=== PATIENT | male | born 1950 | race Caucasian/White ===

== ENCOUNTER → 2020-03-03 09:00 | Outpatient (BNVA) | payer BC, SELFPAY | PROVIDERS: Family Provider Family Medicine; PCP Family Medicine; Visit Provider Family Medicine | DX: R74.0 Nonspecific elevation of levels of transaminase and lactic acid dehydrogenase [LDH] (principal) | CPT/HCPCS: 80053; 80061; 84153; 84439; 84443; 85025 ==

== ENCOUNTER → 2020-09-12 09:30 | Outpatient (BNVA) | payer BC, SELFPAY | PROVIDERS: Family Provider Family Medicine; PCP Family Medicine; Visit Provider Family Medicine | DX: R05 Cough (principal) | CPT/HCPCS: 71046 ==

== ENCOUNTER 2020-09-16 10:14 | Outpatient (CLI) | payer MEDICARE, SELFPAY ==
--- NOTE | 2020-09-16 11:30 | CT_ITS ---
WS: [id number] CT CHEST AND ABDOMEN WITHOUT CONTRAST HISTORY: J40 - Bronchitis, not specified as acute or chronic TECHNIQUE: Axial imaging is performed through the chest and abdomen without contrast. Sagittal and co jerri reformats. All CT scans at [facility] use at least one of these dose optimization t echniques: automated exposure control; mA and/or kV adjustment per patient size (includes targeted ex ams where dose is matched to clinical indication); or iterative reconstruction. CONTRAST: None DLP: 1386.67 mGy-cm. COMPARISON: None available. Chest CT: Marked pulmonary hyperinflation. Triangular shaped 8mm nodule LEFT lower lung present in 2006. No pul monary mass or pneumonia. No bronchial wall thickening. No pleural effusion. No pericardial effusion. Normal size thoracic aorta and pulmonary artery. Normal size heart. Scattered calcifications in the L EFT anterior descending coronary artery. No mediastinal or hilar adenopathy identified on this unenhanced study. Large lobulated hiatal hernia. Abdomen CT: Liver: Hepatic cyst in the LEFT lobe measures 3.8 x 4.1 cm and has been present on prior studies. The re is moderate hepatic steatosis throughout the liver. No bile duct dilatation. Gallbladder: Normal. Pancreas: Normal. Spleen: Normal. Right kidney: Mild perinephric stranding. No obstruction or calcifications. Left kidney: Mild perinephric stranding. LEFT renal cyst at 2.8 cm has slowly increased in size since 2007. No solid mass. Abdominal aorta: Mild atherosclerosis aorta. No aneurysm. Gastrointestinal tract: Visualized GI tract is negative. There is no obstruction. Osseous structures: Thoracolumbar scoliosis. Moderate spondylitic changes in the thoracic spine. Prio r bilateral rotator cuff repairs. CT/CT chest abdomen wo con IMPRESSION: 1. Chronic emphysema with no pneumonia. 2. Long-term stability 8 mm LEFT lower lobe pulmonary nodule. 3. Large hiatal hernia. 4. Hepatic and LEFT renal cysts.
== END 2020-09-16 10:15 | disposition home or self-care (01) ==
LOC: RAD 10:20
PROVIDERS: PCP Family Medicine; Visit Provider Family Medicine
DX: J40 Bronchitis, not specified as acute or chronic (principal); J43.9 Emphysema, unspecified; R91.1 Solitary pulmonary nodule; K44.9 Diaphragmatic hernia without obstruction or gangrene; K76.89 Other specified diseases of liver; N28.1 Cyst of kidney, acquired
CPT/HCPCS: 71250; 74150; 80053; 85025; 87070; G0103

== ENCOUNTER → 2020-11-02 10:55 | Outpatient (BNVA) | payer MEDICARE, SELFPAY | PROVIDERS: PCP Family Medicine; Visit Provider Family Medicine | DX: R05 Cough (principal) | CPT/HCPCS: 87070; 87077; 87205 ==

== ENCOUNTER → 2021-03-27 14:37 | Outpatient (BNVA) | payer MEDICARE, SELFPAY | PROVIDERS: PCP Family Medicine; Visit Provider Family Medicine | DX: C44.41 Basal cell carcinoma of skin of scalp and neck (principal) | CPT/HCPCS: 88304 ==

== ENCOUNTER 2021-10-30 00:15 | Emergency (ER) | payer MEDICARE, SELFPAY ==
[2021-10-30 00:17] VITALS: PULSE 75; RESP 18; TEMP 36.7; O2SAT 97; BMI 27.3
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
[2021-10-30 00:20] VITALS: RESP 21; O2SAT 99
[2021-10-30] MEDS: HYDROmorphone 1 mg/mL INJ 1 mL IVP ×2 (00:20→03:05)
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
[2021-10-30 00:36] VITALS: BP 189/100; RESP 21; O2SAT 98
[2021-10-30] MEDS: ceFAZolin 1,000 MG in sodium chloride 0.9% (plus) 50 ML 100 MG IV (00:41)
[2021-10-30] MEDS: sodium chloride 0.9% 1,000 ML 999 ML IV (01:01)
[2021-10-30] MEDS: ondansetron 2 mg/ML SDV 2 mL 4 MG IVP ×2 (01:01→03:05)
[2021-10-30] MEDS: tetanus-dipt-pertussis 0.5 mL SDV IM (01:12)
[2021-10-30] MEDS: eye irrigation 30 mL Btl EYE-BOTH (03:03)
[2021-10-30] MEDS: tetracaine 0.5% Op Soln 4 mL Btl 1 DROP EYE-BOTH (03:04)
[2021-10-30] MEDS: mupirocin oint 22 gm 1 APPLIC TOPICAL (03:04)
[2021-10-30 03:05] VITALS: RESP 18
[2021-10-30 03:09] VITALS: BP 149/92; PULSE 75; O2SAT 98
== END 2021-10-30 03:14 | disposition short-term general hospital (02) ==
PROVIDERS: Emergency Provider Emergency Medicine; PCP Family Medicine
DX: T20.29XA Burn of second degree of multiple sites of head, face, and neck, initial encounter (principal); T23.291A Burn of second degree of multiple sites of right wrist and hand, initial encounter; T23.292A Burn of second degree of multiple sites of left wrist and hand, initial encounter; T21.14XA Burn of first degree of lower back, initial encounter; T25.021A Burn of unspecified degree of right foot, initial encounter; T25.022A Burn of unspecified degree of left foot, initial encounter; X00.0XXA Exposure to flames in uncontrolled fire in building or structure, initial encounter; Z87.891 Personal history of nicotine dependence; Z23 Encounter for immunization
CPT/HCPCS: 71045; 90471; 90715; 96365; 96375; 96376; 99285; J0690; J1170; J2405; J7030

== ENCOUNTER → 2022-04-03 16:50 | Outpatient (BNVA) | payer MEDICARE, SELFPAY | PROVIDERS: PCP Family Medicine; Visit Provider Nurse Practitioner Family | DX: D64.9 Anemia, unspecified (principal); E78.5 Hyperlipidemia, unspecified | CPT/HCPCS: 80053; 80061; 84439; 84443; 85025 ==

== ENCOUNTER → 2023-02-20 09:52 | Outpatient (BNVA) | payer MEDICARE, SELFPAY | PROVIDERS: PCP Family Medicine; Visit Provider Family Medicine | DX: K21.00 Gastro-esophageal reflux disease with esophagitis, without bleeding (principal); J42 Unspecified chronic bronchitis; Z79.899 Other long term (current) drug therapy | CPT/HCPCS: 71046; 80053; 80061; 85025; G0328 ==

== ENCOUNTER → 2023-04-24 08:57 | Outpatient (BNVA) | payer MEDICARE, SELFPAY | PROVIDERS: PCP Family Medicine; Visit Provider Family Medicine | DX: Z13.9 Encounter for screening, unspecified (principal) | CPT/HCPCS: 86695; 86696; 87491; 87591; 87806 ==

== ENCOUNTER → 2023-05-20 10:03 | Outpatient (BNVA) | payer MEDICARE, SELFPAY | PROVIDERS: PCP Family Medicine; Referring Provider Family Medicine; Visit Provider Specialist | DX: M25.539 Pain in unspecified wrist (principal); G89.29 Other chronic pain | CPT/HCPCS: 73110; 99204 ==

== ENCOUNTER → 2023-10-07 10:54 | Outpatient (BNVA) | payer MEDICARE, SELFPAY | PROVIDERS: PCP Family Medicine; Visit Provider Family Medicine | DX: Z53.9 Procedure and treatment not carried out, unspecified reason (principal) | CPT/HCPCS: 93005 ==

== ENCOUNTER → 2023-11-14 12:29 | Outpatient (BNVA) | payer MEDICARE, SELFPAY | PROVIDERS: PCP Family Medicine; Visit Provider Specialist | DX: G56.03 Carpal tunnel syndrome, bilateral upper limbs (principal); G56.91 Unspecified mononeuropathy of right upper limb; G56.92 Unspecified mononeuropathy of left upper limb; M19.042 Primary osteoarthritis, left hand; M19.041 Primary osteoarthritis, right hand | CPT/HCPCS: 95911 ==

== ENCOUNTER → 2024-03-18 12:37 | Outpatient (BNVA) | payer MEDICARE, SELFPAY | PROVIDERS: PCP Family Medicine; Visit Provider Specialist | DX: G56.03 Carpal tunnel syndrome, bilateral upper limbs (principal) | CPT/HCPCS: 73110 ==

== ENCOUNTER → 2024-03-19 12:31 | Outpatient (BNVA) | payer MEDICARE, SELFPAY | PROVIDERS: PCP Family Medicine; Visit Provider Internal Medicine | DX: R07.9 Chest pain, unspecified (principal); I48.91 Unspecified atrial fibrillation; I45.2 Bifascicular block; I10 Essential (primary) hypertension | CPT/HCPCS: 93005; 99204 ==

== ENCOUNTER 2024-04-15 14:53 | Outpatient (CLI) | payer MEDICARE, SELFPAY ==
--- NOTE | 2024-04-15 15:00 | USCV_ITS ---
Jarvis Rivera Age: 73 Gender: M : 1950 Exam Date: 04/15/2024 15:13 Ordering Phys: Clint Alanis M.D ([email or web address]) Technologist: CT Exam Location: [facility] [place] Indication: afib BP: 124 / 84 HR: 95 Rhythm: Atrial fibrillation Technical Quality: Adequate MEASUREMENTS (Male / Female) Normal Values 2D ECHO LVOT Diameter 2.0 cm LV Ejection Fraction MOD 4C 55.8 % LV Ejection Fraction MOD 2C 50.0 % LV Ejection Fraction 2C AL 48.2 % LA Diameter 5.0 cm RA Systolic Volume 4C AL 88.4 ml RA Systolic Volume 4C MOD 85.1 ml LA Sys Volume AL 91.7 cm cubed LA Sys Volume Index AL 45.0 cm cubed/m squared Aorta at Sinotubular Diameter 2.5 cm IVC Diameter 2.2 cm M-MODE LA Ao Ratio MM 2.1 AV Cusp Separation MM 1.4 cm DOPPLER AV Peak Velocity 178.0 cm/s LVOT Peak Velocity 86.0 cm/s AV Area Cont Eq vti 1.9 cm squared AV Area Cont Eq pk 1.6 cm squared MV Peak Velocity 95.0 cm/s MV Area PHT 3.9 cm squared Mitral E to A Ratio 226.0 TV Peak Velocity 201.0 cm/s TR Peak Velocity 229.0 cm/s TR Peak Gradient 21.0 mmHg TV Peak E Velocity 82.0 cm/s Right Atrial Pressure 3.0 mmHg Pulmonary Artery Systolic Pressu 24.0 mmHg PV Peak Velocity 113.5 cm/s FINDINGS Left Ventricle Left ventricle is normal in size. LV systolic function is borderline normal with EF of 50 to 55%. No regional wall motion abnormalities seen. Right Ventricle Normal in size and function Right Atrium Dilated Left Atrium Dilated Mitral Valve Structurally normal mitral valve. Mild mitral regurgitation. Aortic Valve Structurally normal aortic valve. No significant stenosis or regurgitation. Tricuspid Valve Mild tricuspid regurgitation. Pulmonary artery systolic pressure is normal. Pulmonic Valve Not well visualized Pericardium Normal Aorta Normal in size IVC Appears to be normal CONCLUSIONS LV systolic function is borderline normal with EF of 50-55% Biatrial dilation Mild mitral regurgitation Mild tricuspid regurgitation No comparison studies are available. Clint Alanis MD (Electronically Signed) Final Date: 18 April 2024 13:54 S
== END 2024-04-15 14:54 | disposition home or self-care (01) ==
LOC: RAD 14:54
PROVIDERS: PCP Family Medicine; Visit Provider Internal Medicine
DX: I08.1 Rheumatic disorders of both mitral and tricuspid valves (principal); R07.9 Chest pain, unspecified; R06.02 Shortness of breath
CPT/HCPCS: 93306

== ENCOUNTER → 2024-04-16 11:00 | Outpatient (BNVA) | payer MEDICARE, SELFPAY | PROVIDERS: PCP Family Medicine; Visit Provider Family Medicine | DX: J43.9 Emphysema, unspecified (principal) | CPT/HCPCS: 87070; 87205 ==

== ENCOUNTER → 2024-04-30 12:07 | Outpatient (BNVA) | payer MEDICARE, SELFPAY | PROVIDERS: PCP Family Medicine; Visit Provider Internal Medicine | DX: I48.91 Unspecified atrial fibrillation (principal); I10 Essential (primary) hypertension; Z87.891 Personal history of nicotine dependence | CPT/HCPCS: 99215 ==

== ENCOUNTER 2024-04-30 16:32 | Inpatient (IN) | payer MEDICARE, SELFPAY ==
[2024-04-30] VITALS (15 sets, daily range): BP systolic 126–177; BP diastolic 79–128; PULSE 81–135; RESP 6–32; TEMP 36.6–36.8; O2SAT 87–96; BMI 29.7
--- NOTE | 2024-04-30 17:42 | P.HP_ITS ---
Providers/Chief Complaint 2 Admitting Physician: Clint Alanis M.D Primary Care Provider: Binh Issa DO Chief Complaint: Afib History of Present Illness Jarvis Rivera is a 73 year old male with past medical history of atrial fibrillation hypertension who was admitted directly from the office secondary to A-fib with RVR. Heart rate in 120s. He is short of breath. He had recent nuclear monitoring technician that showed average heart rate of 114 bpm and 100% atrial fibrillation burden. Review of Systems 2 General: Reports: 10 or more systems reviewed and unremarkable except in HPI and below Const: Denies: fever(s) or chills Card: Reports: dyspnea on exertion; Denies: chest pain, palpitations, irregular heart rhythm, swelling of feet/ankles, lightheadedness, pre-syncope, orthopnea or leg pain with exertion Resp: Denies: dyspnea, productive cough or non-productive cough Musc: Reports: neck pain and back pain Neuro: Denies: headache(s) or dizziness Psych: Denies: anxiety, depression, suicidal ideation or homicidal ideation Mracos/Lymph: Denies: easy bruising or easy bleeding Medications/Allergies Home Medications Medication Instructions Recorded Confirmed Last Taken Type ibuprofen 200 mg capsule 400 mg PO BID PRN pain 03/27/21 04/30/24 04/30/24 07:30 History 400 mg ascorbate calcium (vitamin C) 500 1 g PO DAILY 02/20/23 04/30/24 04/30/24 07:30 History mg tablet vitamin E mixed 400 unit capsule unit PO 02/20/23 04/30/24 04/30/24 07:30 History multivitamin (Daily Multi-Vitamin 1 tab PO DAILY 05/20/23 04/30/24 04/30/24 07:30 History tablet) apixaban 5 mg tablet (Eliquis) 5 mg PO BID #180 tabs 03/19/24 04/30/24 04/30/24 07:30 Rx metoprolol tartrate 25 mg tablet 50 mg PO BID 04/30/24 04/30/24 Unknown History metoprolol tartrate 25 mg tablet 50 mg PO BID 04/30/24 04/30/24 04/30/24 07:30 History 50 mg Allergies Allergy/AdvReac Type Severity Reaction Status Date / Time Sulfa (Sulfonamide Allergy Severe mouth sores Verified 04/30/24 17:19 Antibiotics) Penicillins Allergy Intermediate ALGY-Hives Verified 04/30/24 17:18 tetracycline Allergy Intermediate ADR-Diarrhe Verified 04/30/24 17:18 a PFSH Acute 2 PFSH: Family History (Updated 04/30/24 @ 17:30 by Bhargavi Reynolds RN) Father Diabetes Hypertension Sister Lung disease Cancer Mother Dementia Social History Smoking and tobacco/nicotine status: former use of tobacco/nicotine Alcohol intake: current Alcohol intake frequency: 0-2 Drinks per Day Vitals/I&O/Wt Weight last 48 hrs Weight 190 lb 0.5 oz Physical Exam 2 Narrative: GENERAL: Patient is alert, awake and oriented x3. [] NECK: No jugular vein distension. [] HEENT: No cyanosis. No icterus. No pallor. [] HEART: Irregularly irregular, tachycardic. LUNGS: Clear to auscultate bilaterally. [] CENTRAL NERVOUS SYSTEM: Grossly nonfocal. [] EXTREMITIES: Lower extremities with 1+ edema bilaterally. Data 04/30/24 18:19 05/01/24 02:20 A&P Assessment and plan (1) Atrial fibrillation with RVR: (2) Hypertension: Plan Patient has been admitted with atrial fibrillation with RVR. He is symptomatic. Plan for DYAN cardioversion tomorrow. Will continue Eliquis. Continue metoprolol. Starting amiodarone drip. Low dose lasix NPO past midnight for DYAN/ Cardioversion tomorrow. Attestations 2 Medical Necessity Statement*: Care not expected to cross 2 midnights. Patient has presented with atrial fibrillation with RVR. He is short of breath. Plan for starting on antiarrhythmic medication and perform DYAN/ Cardioversion tomorrow. If converts to sinus rhythm, possible discharge home later tomorrow. Coding Level of Care Code Acute Code for [facility] Fwd Diagnoses Atrial fibrillation with RVR I48.91 Hypertension I10
--- NOTE | 2024-04-30 17:42 | XRR_ITS ---
PROCEDURE INFORMATION: Exam: XR Chest Exam date and time: 04/30/2024 9:28 PM Age: 73 years old Clinical indication: Cough and shortness of breath; Additional info: Atrial fibrillation TECHNIQUE: Imaging protocol: Radiologic exam of the chest. Views: 1 view. COMPARISON: CR XR chest 2V* [id number] 02/20/2023 10:07 AM FINDINGS: Lungs: Unremarkable. No consolidation. Pleural spaces: Unremarkable. No pleural effusion. No pneumothorax. Heart/Mediastinum: Mild cardiomegaly. Bones/joints: Unremarkable. XR/XR chest 1V portable [id number] IMPRESSION: No acute cardiopulmonary process.
[2024-04-30] MEDS: amiodarone 150 MG/100 ML PREMIX 400 MG IV (18:29)
[2024-04-30 18:41] LABS: Basophils # 0.1 10^3/uL (0.0-0.1); Basophils % 1.3 %; Eosinophils # 0.1 10^3/uL (0.0-0.8); Eosinophils % 2.4 %; Hematocrit 45.7 % (37-53); Lymphocytes # 1.6 10^3/uL (0.8-4.8); Mean Corpuscular HGB Conc 33.5 g/dL (30-55); Mean Corpuscular Hemoglobin 30.1 pg (27-33); Mean Corpuscular Volume 89.8 fl (82-101); Monocytes # 0.7 10^3/uL (0.2-0.9); Monocytes % 12.7 %; Neutrophils % 54.2 %; Nucleated Red Blood Cells % 0 %; Platelet Count 214 10^3/cmm (157-399); Red Blood Count 5.09 10^6/uL (3.85-5.65); Red Cell Distribution Width 12.7 % (12.1-15.1); White Blood Count 5.35 10^3/uL (3.29-11.43)
[2024-04-30 19:07] LABS: Alanine Aminotransferase 79 U/L (0-41); Albumin Level 4.5 g/dL (3.5-5.2); Alkaline Phosphatase 84 U/L (40-130); Anion Gap 16.4 (5-19); Aspartate Amino Transferase 52 U/L (0-40); Blood Urea Nitrogen 22 mg/dL (8-23); Calcium 8.8 mg/dL (8.5-10.5); Carbon Dioxide 24 mmol/L (22-29); Chloride 103 mmol/L (98-107); Globulin 2.2 g/dL (1.3-4.6); Glucose 109 mg/dL (65-115); NT Pro B Type Natriuretic Pept 1805 pg/mL (0-125); Osmolality Calculated 292 mOsm/kg (285-295); Potassium 4.4 mmol/L (3.5-5.1); Sodium 139 mmol/L (136-145); Total Bilirubin 0.4 mg/dL (0.15-1.2); Total Protein 6.7 g/dL (6.6-8.7)
[2024-04-30] MEDS: apixaban 5 mg Tablet PO (20:17)
[2024-04-30] MEDS: metoprolol tartrate 50 mg Tablet PO (20:17)
[2024-05-01] VITALS (33 sets, daily range): BP systolic 95–143; BP diastolic 58–106; PULSE 49–113; RESP 10–29; TEMP 36.1–36.9; O2SAT 87–100
[2024-05-01 03:43] LABS: Anion Gap 15.3 (5-19); Blood Urea Nitrogen 21 mg/dL (8-23); Calcium 8.1 mg/dL (8.5-10.5); Carbon Dioxide 24 mmol/L (22-29); Chloride 104 mmol/L (98-107); Glucose 125 mg/dL (65-115); Osmolality Calculated 292 mOsm/kg (285-295); Potassium 4.3 mmol/L (3.5-5.1); Sodium 139 mmol/L (136-145)
--- NOTE | 2024-05-01 08:18 | ECG_ITS ---
[facility] Test Date: 2024-05-01 Pat Name: Jarvis Rivera Department: Room: ICU04 Gender: Male Supervisor Fabrication Department: : 1950 Requested By: Clint Alanis Order Number: [id number] Wilfred MD: Daniel Barrett M.D. Measurements Intervals Pooler Rate: 78 P: 0 [place]: 0 QRS: -43 QRSD: 134 T: -8 QT: 428 QTc: 489 Interpretive Statements ATRIAL FIBRILLATION LEFT AXIS DEVIATION [QRS AXIS < -30] RIGHT BUNDLE BRANCH BLOCK [120+ ms QRS DURATION, UPRIGHT V1, 40+ ms S IN I/aVL/V4/V5/V6] Compared to ECG 03/19/2024 12:39:33 Left-axis deviation now present Left anterior fascicular block no longer present Electronically Signed On 05-01-2024 17:08:41 CDT by Daniel Barrett M.D. [id number]
--- NOTE | 2024-05-01 09:02 | USCV_ITS ---
Jarvis Rivera Age: 73 Gender: M : 1950 Exam Date: 05/01/2024 13:11 Ordering Phys: Clint Alanis M.D ([email or web address]) Technologist: ZAN [place] [facility] [place]ication: DYAN WITH CV FOR AFIB BP: 5 / 10 HR: Rhythm: Sinus Technical Quality: MEASUREMENTS (Male / Female) Normal Values Medications Patient given IV sedation by anesthesia service, for details please refer to the anesthesia report. Complications None. Proc. Components The patient was brought to the DYAN examination room in a fasting state after obtaining an informed consent. The DYAN probe was passed into the posterior pharynx , mid-esophagus, distal esophagus, and gastric fundus. DYAN was performed at multiple levels. The patient tolerated the procedure well and there were no complications. FINDINGS Left Ventricle Moderately increased left ventricular cavity size. Severely decreased left ventricular systolic function. Estimated ejection fraction 15 to 20% with severe global hypokinesis Right Ventricle The right ventricle is normal in size and function. Right Atrium The right atrium is normal in size. Left Atrium Moderately increased left atrial size. LA Appendage Normal left atrial appendage. No thrombus visualized in the left atrial appendage. IA Septum Normal interatrial septum. No kjjjw-di-[id number] shunt seen at the atrial level with contrast. Mitral Valve Moderately thickened mitral valve. No mitral valve stenosis. Mild-moderate mitral valve regurgitation. Aortic Valve Moderate aortic valve calcification. No aortic valve stenosis. Trace aortic valve regurgitation. Tricuspid Valve Trace tricuspid valve regurgitation. Pulmonic Valve Structurally normal pulmonic valve without significant stenosis. There is no pulmonic regurgitation. Pericardium Normal pericardium without effusion. Aorta Normal ascending aorta dimension. CONCLUSIONS 1-Moderately increased left ventricular cavity size. Severely decreased left ventricular systolic function. Estimated ejection fraction 15 to 20% with severe global hypokinesis 2-Moderately increased left atrial size. 3-Moderately thickened mitral valve. No mitral valve stenosis. Mild-moderate mitral valve regurgitation. 4-There is no pericardial effusion. 5-Normal left atrial appendage. No thrombus visualized in the left atrial appendage. Proceed with cardioversion Leigh Boyer MD (Electronically Signed) Final Date: 01 May 2024 18:07 S
[2024-05-01] MEDS: FUROsemide 10 mg/mL SDV 2mL 20 MG IVP (09:32)
[2024-05-01] MEDS: apixaban 5 mg Tablet PO (09:32)
[2024-05-01] MEDS: metoprolol tartrate 50 mg Tablet PO (09:32)
--- NOTE | 2024-05-01 10:29 | P.ANESASSM_ITS ---
Pre-Anesthetic Assessment Height/Weight: Height 5 ft 7 in Weight 195 lb 1.745 oz Temp Pulse Resp BP Pulse Ox O2 Del Method 98.4 F 93 10 L 124/77 94 Room Air 05/01/24 04:00 05/01/24 06:00 05/01/24 04:00 05/01/24 04:00 05/01/24 04:00 05/01/24 04:00 A-fib Familial anesthetic complications: None Social No alcohol and No tobacco Exam alert, oriented x 3, clear to auscultation bilaterally and regular rate & rhythm Airway Submandibular: within normal limits Cervical ROM: within normal limits Mallampati: Class I Comments: Comments: Few missing bottom teeth Anesthetic Plan ASA status: 3 Anesthesia: MAC Other: No prior issues with anesthesia N.p.o. since last night A-fib diagnosed in February, recent Holter monitor showed 100% A-fib burden Echo 03/2024 showing EF 50 to 55% Patient currently admitted to ICU on amiodarone drip at 0.5 mg/min Patient states that he was diagnosed with emphysema recently but does not use any inhalers or oxygen Plan for MAC anesthesia Medications/Allergies Home Medications Medication Instructions Recorded Confirmed Last Taken Type ibuprofen 200 mg capsule 400 mg PO BID PRN pain 03/27/21 05/01/24 04/30/24 07:30 History 400 mg ascorbate calcium (vitamin C) 500 1 g PO DAILY 02/20/23 05/01/24 04/30/24 07:30 History mg tablet vitamin E mixed 400 unit capsule 400 unit PO DAILY 02/20/23 05/01/24 04/30/24 07:30 History multivitamin (Daily Multi-Vitamin 1 tab PO DAILY 05/20/23 05/01/24 04/30/24 07:30 History tablet) apixaban 5 mg tablet (Eliquis) 5 mg PO BID #180 tabs 03/19/24 05/01/24 04/30/24 07:30 Rx metoprolol tartrate 25 mg tablet 50 mg PO BID 04/30/24 04/30/24 04/30/24 07:30 History 50 mg Allergies Allergy/AdvReac Type Severity Reaction Status Date / Time Sulfa (Sulfonamide Allergy Severe mouth sores Verified 04/30/24 17:19 Antibiotics) Penicillins Allergy Intermediate ALGY-Hives Verified 04/30/24 17:18 tetracycline Allergy Intermediate ADR-Diarrhe Verified 04/30/24 17:18 a Current Medications Generic Name Dose Route Start Last Admin Trade Name Kirstin PRN Reason Stop Dose Admin Apixaban 5 mg 04/30/24 21:00 05/01/24 09:32 Apixaban 5 Mg Tablet PO 5 mg BID@0900,2100 SRIDHAR Administration Amiodarone HCl/Dextrose 360 mg in 200 mls @ 16.667 mls/hr 04/30/24 17:47 05/01/24 01:06 Nexterone IV 1 mg/min .Q12H SRIDHAR 33.33 mls/hr Administration Protocol 0.5 MG/MIN Metoprolol Tartrate 50 mg 04/30/24 21:00 05/01/24 09:32 Metoprolol Tartrate 50 Mg Tablet PO 50 mg BID@0900,2100 SRIDHAR Administration PFSH Anesthesia Family History (Updated 04/30/24 @ 17:30 by Bhargavi Reynolds RN) Father Diabetes Hypertension Sister Lung disease Cancer Mother Dementia Social History Smoking and tobacco/nicotine status: former use of tobacco/nicotine Alcohol intake: current Alcohol intake frequency: 0-2 Drinks per Day Data Anesthesia 04/30/24 18:19 05/01/24 02:20 Short CBC 04/30/24 Range/Units 18:19 WBC 5.35 (3.29-11.43) 10^3/uL Hgb 15.30 (11.27-16.99) g/dL Hct 45.7 (37-53) % MCV 89.8 (82-101) fl Plt Count 214 (157-399) 10^3/cmm Neut % (Auto) 54.2 % Neut # (Auto) 2.90 (1.8-7.7) 10^3/uL BMP 04/30/24 05/01/24 18:19 02:20 Sodium 139 139 Potassium 4.4 4.3 Chloride 103 104 Carbon Dioxide 24 24 BUN 22 21 Creatinine 0.9 1.0 Glucose 109 125 H Calcium 8.8 8.1 L Cardiac Enzymes 04/30/24 Range/Units 18:19 NT-Pro-B Natriuret Pep 1805 H (0-125) pg/mL Liver Function 04/30/24 Range/Units 18:19 Total Bilirubin 0.4 (0.15-1.2) mg/dL AST 52 H (0-40) U/L ALT 79 H (0-41) U/L Alkaline Phosphatase 84 (40-130) U/L Albumin 4.5 (3.5-5.2) g/dL Cardiac Studies: 2 Echocardiogram 04/15/24 Cardiac Event Monitor 03/23/24
--- NOTE | 2024-05-01 13:50 | PC.NURSE ---
Dr Boyer, and anesthesia at bedside. Amiodarone gtt paused for procedure. DYAN done. Pt cardioverted x1 at 120 joules back to sinus rhythm. Bradycardia in 50's and an occasional 49 noted. Amiodarone discontinued per Dr Boyer due to bradycardia. Snoring respirations noted.
--- NOTE | 2024-05-01 20:07 | PC.NURSE ---
Shift summary: Pt rested in bed with trips to bathroom today. He did received Lasix this am. He was in A-fib. NO complains of pain, shortness of breath or dizziness this shift. DYAN and cardioversion completed today. Pt now in sinus rhythm. Immediately after he was bradycardia but his heart rate is trending up to 70's at this time. Still no complaints noted. When pt alert he was started on a cardiac diet which he tolerated and enjoyed. Urine output 1350ml noted this shift.
[2024-05-01] MEDS: enoxaparin 100 mg/mL Syringe 90 MG SUBCUT (20:35)
[2024-05-01] MEDS: carvedilol 3.125 mg Tablet PO (20:36)
[2024-05-02] VITALS (29 sets, daily range): BP systolic 95–147; BP diastolic 56–106; PULSE 59–90; RESP 13–27; TEMP 35.9–36.6; O2SAT 89–97; BMI 29.0
[2024-05-02 05:30] LABS: Anion Gap 16.2 (5-19); Blood Urea Nitrogen 25 mg/dL (8-23); Calcium 8.8 mg/dL (8.5-10.5); Carbon Dioxide 25 mmol/L (22-29); Chloride 103 mmol/L (98-107); Creatinine Clr Calc Pharmacy 64.4455; Glucose 116 mg/dL (65-115); Osmolality Calculated 295 mOsm/kg (285-295); Potassium 4.2 mmol/L (3.5-5.1); Sodium 140 mmol/L (136-145)
[2024-05-02] MEDS: amiodarone 200 mg Tablet PO (07:45)
[2024-05-02] MEDS: enoxaparin 100 mg/mL Syringe 90 MG SUBCUT ×2 (07:45→20:20)
[2024-05-02] MEDS: carvedilol 3.125 mg Tablet PO ×2 (07:45→17:59)
--- NOTE | 2024-05-02 10:26 | P.PN_ITS ---
Subjective 2 Subjective: Please note that this note is for service provided to the patient on 05/01/2024 as I forgot to document yesterday therefore I am writing it today. Patient went transesophageal echocardiogram noted to have severely depressed ejection fraction which is new 15 to 20%. He was successfully cardioverted after ruling out left atrial appendage clot. Vitals/I&O/Wt Last Vital Signs Temp 97.7 F 05/01/24 13:45 Pulse 59 L 05/02/24 05:50 Resp 21 H 05/02/24 04:30 BP 132/84 05/02/24 04:30 Pulse Ox 96 05/02/24 04:30 O2 Del Method Room Air 05/01/24 19:00 O2 Flow Rate 2 05/01/24 15:00 05/01/24 05/02/24 05/02/24 22:59 06:59 14:59 Intake Total 400 / 400 Output Total 400 / 1350 250 / 1600 Balance -400 / -1329.982 -250 / -1579.982 400 / 400 Weight last 48 hrs Weight 185 lb 10.067 oz Weight 195 lb 1.745 oz Weight 190 lb 0.5 oz Physical Exam 2 Const: OTHER: GENERAL: Patient is alert, awake and oriented x3. HEART: Regular S1 and S2. No murmur, rub or gallop. LUNGS: Clear to auscultate bilaterally. ABDOMEN: Soft, nontender and nondistended. Positive bowel sounds. No guarding, rebound or tenderness. CENTRAL NERVOUS SYSTEM: Grossly nonfocal. EXTREMITIES: Lower extremities without edema bilaterally. Pulses palpable in the lower extremities, both dorsalis pedis and posterior tibial. Data 04/30/24 18:19 05/02/24 04:39 A&P Assessment and plan (1) Atrial fibrillation with RVR: Successfully cardioverted to sinus rhythm. Will switch patient to Lovenox. Add 200 mg p.o. of amiodarone for now. (2) Hypertension: Well-controlled continue (3) LV dysfunction: Patient developed new LV dysfunction based upon DYAN ejection fraction 15 to 20% with severe global hypokinesis, there was moderate mitral valve regurgitation and moderately enlarged left atrium, most likely global hypokinesis and new onset of cardiomyopathy secondary to atrial fibrillation however cannot rule out ischemic component therefore recommend left heart catheterization. (4) Cardiomyopathy: Ischemic versus nonischemic as above plan to left heart catheterization, patient would like to think about it (5) Moderate mitral valve regurgitation: Patient has moderate mitral valve regurgitation on that DYAN most likely secondary to low ejection fraction and stress ventricle, hopefully adding guideline medical therapy and improvement in the left ventricle may will improve MR which could be structural Attestations 2 Medical Necessity Statement*: Patient require continuation of hospitalization for above defined care Coding Level of Care Code Acute Code for [facility] Fwd Diagnoses Atrial fibrillation with RVR I48.91 Hypertension I10 LV dysfunction I51.9 Cardiomyopathy I42.9 Moderate mitral valve regurgitation I34.0
--- NOTE | 2024-05-02 14:38 | P.PN_ITS ---
Subjective 2 Subjective: Please note that this is a progress note for today previous progress note was for yesterday. Overnight no events patient remains in sinus rhythm. Vitals/I&O/Wt Last Vital Signs Temp 97.7 F 05/01/24 13:45 Pulse 59 L 05/02/24 05:50 Resp 21 H 05/02/24 04:30 BP 132/84 05/02/24 04:30 Pulse Ox 96 05/02/24 04:30 O2 Del Method Room Air 05/01/24 19:00 O2 Flow Rate 2 05/01/24 15:00 05/01/24 05/02/24 05/02/24 22:59 06:59 14:59 Intake Total 400 / 400 Output Total 400 / 1350 250 / 1600 Balance -400 / -1329.982 -250 / -1579.982 400 / 400 Weight last 48 hrs Weight 185 lb 10.067 oz Weight 195 lb 1.745 oz Weight 190 lb 0.5 oz Physical Exam 2 Const: OTHER: GENERAL: Patient is alert, awake and oriented x3. HEART: Regular S1 and S2. No murmur, rub or gallop. LUNGS: Clear to auscultate bilaterally. ABDOMEN: Soft, nontender and nondistended. Positive bowel sounds. No guarding, rebound or tenderness. CENTRAL NERVOUS SYSTEM: Grossly nonfocal. EXTREMITIES: Lower extremities without edema bilaterally. Pulses palpable in the lower extremities, both dorsalis pedis and posterior tibial. Data 04/30/24 18:19 05/02/24 04:39 A&P Assessment and plan (1) Atrial fibrillation with RVR: Successfully cardioverted to sinus rhythm. Will switch patient to Lovenox. Add 200 mg p.o. of amiodarone for now. (2) Hypertension: Well-controlled continue (3) LV dysfunction: Patient developed new LV dysfunction based upon DYAN ejection fraction 15 to 20% with severe global hypokinesis, there was moderate mitral valve regurgitation and moderately enlarged left atrium, most likely global hypokinesis and new onset of cardiomyopathy secondary to atrial fibrillation however cannot rule out ischemic component therefore recommend left heart catheterization. On today's visit we have detailed discussion with the patient and his son-in-law, his son-in-law is a pharmacist and would like to think over it at this point patient is reluctant to start guideline medical therapy for heart failure. He would also like to think about whether he would like to go for left heart catheterization or other option is stress test. He will let us know by tomorrow. At the moment he is on carvedilol and amiodarone. (4) Cardiomyopathy: Ischemic versus nonischemic as above plan to left heart catheterization, patient would like to think about it (5) Moderate mitral valve regurgitation: Patient has moderate mitral valve regurgitation on that DYAN most likely secondary to low ejection fraction and stress ventricle, hopefully adding guideline medical therapy and improvement in the left ventricle may will improve MR which could be structural Continue treatment as well Attestations 2 Medical Necessity Statement*: Patient require continuation of hospitalization for above defined care Coding Level of Care Code Acute Code for [facility] Fwd Diagnoses Atrial fibrillation with RVR I48.91 Hypertension I10 LV dysfunction I51.9 Cardiomyopathy I42.9 Moderate mitral valve regurgitation I34.0
--- NOTE | 2024-05-02 19:28 | PC.NURSE ---
Shift summary: Pt denied any pain, shortness of breath , dizziness or other symptoms this sift. Sinus, bradycardia and first degree block noted on monitor throughout the day. He started oral Amiodarone and Coreg today. He was up ad evelyn to use toilet. He did have bowel movement today. Urine output adequate. He walked around unit twice this shift. He spent most of the afternoon visiting and playing cribbage with is family. He consumed most of each meal.
[2024-05-03] VITALS (35 sets, daily range): BP systolic 98–169; BP diastolic 60–113; PULSE 52–70; RESP 3–33; TEMP 36–36.9; O2SAT 87–97
[2024-05-03 04:52] LABS: Anion Gap 15.2 (5-19); Blood Urea Nitrogen 19 mg/dL (8-23); Calcium 8.8 mg/dL (8.5-10.5); Carbon Dioxide 26 mmol/L (22-29); Chloride 104 mmol/L (98-107); Creatinine Clr Calc Pharmacy 69.2656; Glucose 105 mg/dL (65-115); Osmolality Calculated 295 mOsm/kg (285-295); Potassium 4.2 mmol/L (3.5-5.1); Sodium 141 mmol/L (136-145)
[2024-05-03] MEDS: enoxaparin 100 mg/mL Syringe 90 MG SUBCUT (08:24)
[2024-05-03] MEDS: amiodarone 200 mg Tablet PO (08:24)
[2024-05-03] MEDS: carvedilol 3.125 mg Tablet PO ×2 (08:24→17:57)
--- NOTE | 2024-05-03 08:33 | W.PM.OPSUD ---
Surgery/Procedure H&P Update DATE OF PROCEDURE: May 03, 2024 DATE H&P PERFORMED: 04/30/24 H&P UPDATE INFORMATION: I have reviewed H&P completed within last 30 days, I have examined patient prior to procedure and No changes to prior documentation PREOP DIAGNOSIS: New onset of heart failure PATIENT REASSESSED PRIOR TO SEDATION, WITH NO CHANGE NOTED: Yes PHYSICAL EXAM: alert, oriented x 3, clear to auscultation bilaterally, regular rate & rhythm and operative site marked AIRWAY EVAL/ANESTHESIA PLAN: ASA II, Risks, benefits & alternatives of sedation and/or procedure discussed and Patient agrees to continue as planned
--- NOTE | 2024-05-03 08:52 | XACV_ITS ---
Exam Room: 2 Ht: 170 cm Wt: 85 kg BSA: 2.03 m2 Gender: Male : 1950 Any Known Allergies: Other Exam Priority: Routine Procedure(s): Procedure Description: Diagnostic procedure Procedure Description: Left Heart Catheterization Procedure Description: Left ventriculography Procedure Description: Coronary Angiography Merlin FELICIANO; Diagnostic Cath Status: Elective Diagnostic Findings * Left Main has no disease. * Circumflex has no disease. * Right Coronary Artery has no disease. * Mid Left Anterior Descending: obstructive 60% stenosis, JUSTINE: 3 flow. * Distal Left Anterior Descending: obstructive 60% stenosis, JUSTINE: 3 flow. * Coronary angiography shows right dominance. Conclusions 1. There is obstructive coronary artery disease with one vessel disease. 2. All graham are hypokinetic. 3. Moderate left ventricular systolic dysfunction. Ejection fraction of 30%. Recommendations * Usual post cath care, optimal medical management for severe LV dysfunction and heart failure. * Patient refused heart failure medicine, he understand risk benefits and alternatives we will discuss it again. Diagnostic RX Recommendation: medical therapy and/or counseling LV EDP: 34 mmHg Ventriculography Ejection Fraction: 30.0 % Left Ventriculography Findings: * Severely depressed left ventricular ejection fraction with global severe hypokinesis estimate ejection fraction 25 to 30%, there is elevated left ventricular end-diastolic pressure of 34 mmHg. Presentation consistent with nonischemic cardiomyopathy. Pressures Phase:Rest AO : 142 / 83 ( 106 ) @ 12:16:00 PM 125 / 85 ( 103 ) @ 12:17:00 PM 129 / 84 ( 104 ) @ 12:19:00 PM 147 / 47 ( 87 ) @ 12:28:00 PM LV : 161 / 11 / 33 @ 12:27:00 PM 164 / 13 / 34 @ 12:28:00 PM Clinical Evaluation EBL: 5mL-10mL Procedural Details Procedure Consent Obtained. Pre-Procedure Time Out. Identified patient by full name and date of as verbalized by the patient/guarantor. Does the consent match the physician's order: Yes. Accurate & Complete Informed Consent: Yes. Inpatient/Outpatient History & Physical on Chart: Yes. If H&P is completed, is and addenduem needed: No. Visualize and Verify Site with Patient/Guarantor: N/A. Relevant Radiology Images available: Yes. The risks, benefits, and alternatives of sedation and/or procedure were discussed by physician. The patient agrees to continue. Procedure started. [facility] Clinical Fraility Score: 3: Managing Well. Strings Teacher Indications: Other. Chest Pain Symptom Assessment: Atypical Angina. Physician arrived. Correct patient, site and procedure confirmed by cath team. PERRLA. Strong, equal hand trimming inspector bilaterally. Lungs clear x 5 lobes. IV Fluids: 0.9% NaCl at KVO. 300 mL infused prior to cheesemaking laborer. IV Site on Arrival: 18 gauge in the left anticubital. Baseline sample Acquired. HR: 72 BPM. Oxygen started at 2liters/min via nasal canula. right groin was prepped with chloroprep then draped in the usual sterile fashion. right radial was prepped with chloroprep then draped in the usual sterile fashion. Physician scrubbed in. Immediate Pre-Procedure Time Out. Correct Patient: Yes; Correct Procedure: Yes; Correct Site: Yes; Correct Patient Position: Yes; Correct Supplies: Yes; Dried Flammable Prep: Yes; Blood Products Available: N/A;. Lidocaine 1% infiltrated to the right radial. Arterial access obtained. A 5 djiboutian TIG catheter in over wire. Wire out. Contrast hand injected through the catheter. Glidewire inserted through the catheter. Glidewire removed. Standard J wire inserted. Multiple views taken of left coronary artery. Catheter redirected to the RCA. Multiple views taken of right coronary artery. Catheter removed over the exchange wire. A 5 djiboutian Angled Pig catheter in over wire. EDP Sample taken: LV 161/11,33; HR: 61 BPM; SpO2: 96%. LV gram performed in BOWMAN @ 10 mL/second for a total of 20 mL. EDP Sample taken: LV 164/13,34; HR: 61 BPM; SpO2: 94%. Pullback taken: LV Off; AO Off; Mean: , Peak to Peak: , SEP: ; HR: 61 BPM; SpO2: 97%. Catheter removed over the exchange wire. Vital chart was stopped. A TR Band was successful obtaining hemostatsis at the Right Radial artery insertion site. Post Procedure: Pulses reassessed and unchanged. PERRLA. Strong, equal hand trimming inspector bilaterally. No VTE prophylaxis required. Medication's Wasted: Nitro = 49.8 mcg. Medication's Wasted: Lidocaine 1% = 18 mL. Medication's Wasted: Heparin = 1000 units. Total IV fluids: 75 mL. Complications: None. Estimated blood loss: 5mL-10mL. Responsiveness - Normal response to verbal stimuli; alert and oriented, PERRLA. Airway - Unaffected, no intervention required; spontaneous ventilation. Circulation: W/N/L, pulses unchanged. Nausea/Vomiting: No. Procedure completed. Patient transferred by wheelchair to ICU. Access Site Site: Right Radial artery Sheath Size: 6 Fr Hemostasis Method: TR Band Hemostasis Success: Successful Complication Findings: none. Procedure Medications Start: 10:48 AM Stop: 10:48 AM Medication: Versed Amount: 1 mg Route: I.V. Start: 10:48 AM Stop: 10:48 AM Medication: Fentanyl Amount: 50 mcg Route: I.V. Start: 10:55 AM Stop: 10:55 AM Medication: Versed 1 mg and Fentanyl 25 mcg Amount: 1 Route: I.V. Start: 11:06 AM Stop: 11:06 AM Medication: Nitrogylcerin Amount: 200 mcg Route: I.A. Start: 11:15 AM Stop: 11:15 AM Medication: Heparin Amount: 5000 units Route: I.V. Start: 11:22 AM Stop: 11: AM Medication: Fentanyl Amount: 25 mcg Route: I.V. Start: 11:24 AM Stop: 11:24 AM Medication: Zofran (ondansetron) Amount: 4 mg Route: I.V. I, the attending physician, have reviewed and verified all procedure medications. Yes, all medications given per verbal order History/Risk Factors Hypertension: Yes Dyslipidemia: No Peripheral Arterial Disease (PAD): No Myocardial Infarction (AZ): No Obesity: No Renal Disease: No Tobacco Use: Former Prior Interventions PCI: No CABG: No Valve Surgery: No Report Signatures Finalized by Leigh Boyer MD on 05/15/2024 10:26 PM
--- NOTE | 2024-05-03 10:42 | PC.NURSE ---
Pt to shellfish processing laborer.
--- NOTE | 2024-05-03 11:50 | PC.NURSE ---
Addendum entered by Marjorie Trejo RN 05/03/24 12:47: Pt remains nauseous. Pt would like to wait on receiving lunch tray at this time. Original Note: Pt arrives from labor relations worker. TR band in place. Slight drainage noted along edge of TR band. No new drainage/bleeding noted. Pulse palpable. No hematoma noted.
[2024-05-03] MEDS: alum-mag-hydroxide-sime 30 mL UDC PO (13:28)
--- NOTE | 2024-05-03 13:38 | PC.NURSE ---
Pt continues to have some nausea and excessive belching. He did have one more bout of emesis. Maalox admin. Pt stated opiods always make him sick. He continues he can do them but it is better to have anti-emetic medication first.
--- NOTE | 2024-05-03 14:30 | PC.NURSE ---
Opiods listed a adverse reaction- severe nausea per pt request.
--- NOTE | 2024-05-03 15:30 | P.PN_ITS ---
Subjective 2 Subjective: No overnight event Patient underwent left heart catheterization noted to have no significant obstructive coronary artery disease however left ventricular ejection fraction at 20-25% with elevated left ventricle end-diastolic pressure Vitals/I&O/Wt Last Vital Signs Temp 96.8 F L 05/03/24 12:00 Pulse 55 L 05/03/24 13:30 Resp 19 H 05/03/24 13:30 BP 164/113 05/03/24 13:30 Pulse Ox 96 05/03/24 13:30 O2 Del Method Room Air 05/03/24 13:30 O2 Flow Rate 2 05/03/24 12:00 05/03/24 05/03/24 05/03/24 06:59 14:59 22:59 Output Total 250 / 600 Balance -250 / 600 Weight last 48 hrs Weight 187 lb 9.814 oz Weight 185 lb 10.067 oz Physical Exam 2 Const: COMMON NORMALS: alert OTHER: GENERAL: Patient is alert, awake and oriented x3. HEART: Regular S1 and S2. No murmur, rub or gallop. LUNGS: Clear to auscultate bilaterally. ABDOMEN: Soft, nontender and nondistended. Positive bowel sounds. No guarding, rebound or tenderness. CENTRAL NERVOUS SYSTEM: Grossly nonfocal. EXTREMITIES: Lower extremities without edema bilaterally. Resp: COMMON NORMALS: clear to auscultation bilaterally AUSCULTATION: clear to auscultation bilaterally Neuro: SENSORIUM/ORIENTATION: Yes alert Data 04/30/24 18:19 05/03/24 03:21 A&P Assessment and plan (1) Atrial fibrillation with RVR: Remained in sinus rhythm, continue amiodarone start Eliquis (2) Hypertension: Well-controlled continue (3) LV dysfunction: Patient developed new LV dysfunction based upon DYAN ejection fraction 15 to 20% with severe global hypokinesis, there was moderate mitral valve regurgitation and moderately enlarged left atrium, most likely global hypokinesis and new onset of cardiomyopathy secondary to atrial fibrillation however cannot rule out ischemic component therefore recommend left heart catheterization. On today's visit we have detailed discussion with the patient and his son-in-law, his son-in-law is a pharmacist and would like to think over it at this point patient is reluctant to start guideline medical therapy for heart failure. He would also like to think about whether he would like to go for left heart catheterization or other option is stress test. He will let us know by tomorrow. At the moment he is on carvedilol and amiodarone. On today's visit dated 05/03/2024 patient underwent left heart catheterization. Noted to have no significant obstructive coronary disease however luminal irregularities of LAD noted, left ventricular end-diastolic pressure was 33 mmHg while left ventricular ejection fraction was severely depressed 20-25 %. It appeared to me patient has nonischemic cardiomyopathy. At this point will add Entresto. Patient has been explained all risk benefit and alternative for the medicine he would like to proceed with it. Patient will be enrolled in cardiac rehab as an outpatient. Since patient has nonischemic cardiomyopathy dilated with severely depressed ejection fraction in order to avoid sudden cardiac will advise LifeVest. Patient has been given heart failure education. (4) Cardiomyopathy: Ischemic dilated cardiomyopathy treatment as above (5) Moderate mitral valve regurgitation: Most likely due to stress ventricle, continue guideline medical therapy for heart failure and LV dysfunction. Will continue to monitor mitral regurgitation with yearly echo. Continue treatment as well Attestations 2 Medical Necessity Statement*: Please note that because of atrial fibrillation new onset of heart failure LV dysfunction and left heart catheterization patient requires continuation of hospitalization patient on 2 full nights. He is inpatient status. Coding Level of Care Code Acute Code for [facility] Fwd Diagnoses Atrial fibrillation with RVR I48.91 Hypertension I10 LV dysfunction I51.9 Cardiomyopathy I42.9 Moderate mitral valve regurgitation I34.0
[2024-05-03] MEDS: sacubitril/valsartan 24-26 mg Tablet 1 EACH PO (17:57)
--- NOTE | 2024-05-03 19:00 | PC.NURSE ---
Shift summary: Pt went to open hearth laborer today. Right radial site, no bleeding or hematomas noted. First degree block, sinus bradycardia noted on monitor after procedure. Pt had persistent nausea after procedure. He did received Zofran while in open hearth laborer. He had emesis x2 and frequent large belching for several hours. Maalox also administered. Pt stated opiods made him sick. He did not eat lunch due to nasuea. It finally cleared up after 1600. He amb twice around unit this afternoon without difficulties, no shortness of breath or dizziness noted. His heart rate increased to 60's, no change in rhythm. He has urinated several times this afternoon, clear pale yellow liquid noted. His appetite had returned for dinner.
--- NOTE | 2024-05-03 20:00 | ECG_ITS ---
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 Measurements Intervals [place] Rate: 64 P: 62 MN: 236 QRS: -53 QRSD: 128 T: -24 QT: 479 QTc: 496 Interpretive Statements SINUS RHYTHM WITH FIRST DEGREE AV BLOCK WITH OCCASIONAL SUPRAVENTRICULAR PREMATURE COMPLEXES RIGHT BUNDLE BRANCH BLOCK [120+ ms QRS DURATION, UPRIGHT V1, 40+ ms S IN I/aVL/V4/V5/V6] LEFT ANTERIOR FASCICULAR BLOCK [QRS AXIS <= -45, QR IN I, RS IN II] MINIMAL VOLTAGE CRITERIA FOR LVH, CONSIDER NORMAL VARIANT [MEETS CRITERIA IN ONE OF: R(aVL), S(V1), R(V5), R(V5/V6)+S(V1)] Compared to ECG 05/01/2024 08:18:12 First degree AV block now present Left anterior fascicular block now present Atrial fibrillation no longer present Left-axis deviation no longer present Electronically Signed On 05-04-2024 11:17:06 CDT by Clint Alanis M.D. [id number]
[2024-05-03] MEDS: atorvastatin 40 mg Tablet PO (21:00)
[2024-05-03] MEDS: apixaban 5 mg Tablet PO (21:00)
[2024-05-04] VITALS (19 sets, daily range): BP systolic 94–167; BP diastolic 56–99; PULSE 54–62; RESP 6–22; TEMP 36.6–36.8; O2SAT 89–95
[2024-05-04 03:40] LABS: Basophils # 0.1 10^3/uL (0.0-0.1); Eosinophils # 0.1 10^3/uL (0.0-0.8); Eosinophils % 2.1 %; Hematocrit 46.2 % (37-53); Lymphocytes # 1.3 10^3/uL (0.8-4.8); Lymphocytes % 20.8 %; Mean Corpuscular HGB Conc 33.1 g/dL (30-55); Mean Corpuscular Hemoglobin 29.8 pg (27-33); Mean Corpuscular Volume 90.1 fl (82-101); Monocytes # 0.7 10^3/uL (0.2-0.9); Monocytes % 11.4 %; Neutrophils # 3.89 10^3/uL (1.8-7.7); Neutrophils % 63.2 %; Nucleated Red Blood Cells % 0 %; Platelet Count 222 10^3/cmm (157-399); Red Blood Count 5.13 10^6/uL (3.85-5.65); Red Cell Distribution Width 12.6 % (12.1-15.1); White Blood Count 6.15 10^3/uL (3.29-11.43)
[2024-05-04 04:04] LABS: Anion Gap 15.4 (5-19); Blood Urea Nitrogen 21 mg/dL (8-23); Calcium 8.9 mg/dL (8.5-10.5); Carbon Dioxide 25 mmol/L (22-29); Chloride 103 mmol/L (98-107); Creatinine Clr Calc Pharmacy 63.2778; Glucose 121 mg/dL (65-115); Osmolality Calculated 292 mOsm/kg (285-295); Potassium 4.4 mmol/L (3.5-5.1); Sodium 139 mmol/L (136-145)
--- NOTE | 2024-05-04 07:20 | PC.NURSE ---
Received report , assumed care.
[2024-05-04] MEDS: amiodarone 200 mg Tablet PO (08:52)
[2024-05-04] MEDS: apixaban 5 mg Tablet PO (08:52)
[2024-05-04] MEDS: sacubitril/valsartan 24-26 mg Tablet 1 EACH PO (08:52)
[2024-05-04] MEDS: carvedilol 3.125 mg Tablet PO (08:52)
[2024-05-04] MEDS: ascorbic acid 500 mg Tablet 1000 MG PO (08:52)
[2024-05-04] MEDS: multivitamin therapeutic Tablet 1 TAB PO (08:53)
--- NOTE | 2024-05-04 08:55 | PC.NURSE ---
Pt up to restroom then ambulated around unit without difficulty
--- NOTE | 2024-05-04 10:33 | P.DS_ITS ---
Discharge Providers Date of Admission: 04/30/24 Date of Discharge: May 04, 2024 Attending Provider at Admission: Clint Alanis M.D Attending Provider at Discharge: Clint Alanis M.D Primary Care Provider: Binh Issa DO Diagnoses at Discharge Discharge Diagnosis (1) Atrial fibrillation with RVR: Status: Inactive (2) Hypertension: Status: Acute (3) LV dysfunction: Status: Acute (4) Cardiomyopathy: Status: Acute (5) Moderate mitral valve regurgitation: Status: Acute Reason for Visit Reason for Visit: Afib Brief History: 73 year old male with past medical history of atrial fibrillation hypertension who was admitted directly from the office secondary to A-fib with RVR. Heart rate in 120s. He was short of breath. He had recent monitoring and evaluation advisor that showed average heart rate of 114 bpm and 100% atrial fibrillation burden. Patient admitted for afib with RVR management with DYAN/ Cardioversion Hospital Course Hospital Course Patient had successful cardioversion back to sinus rhythm after DYAN. Amiodarone was started. DYAN showed reduced LV systolic function. Had coronary angiogram to rule out CAD. He was discharged home in a stable condition on eliquis, coreg , amiodarone and entresto with close cardiology follow up. Lifevest ordered. Physical Exam Narrative: GENERAL: Patient is alert, awake and oriented x3. [] NECK: No jugular vein distension. [] HEENT: No cyanosis. No icterus. No pallor. [] HEART: Regular rate and rhythm LUNGS: Clear to auscultate bilaterally. [] CENTRAL NERVOUS SYSTEM: Grossly nonfocal. [] EXTREMITIES: Lower extremities with 1+ edema bilaterally. Discharge Data Studies Completed and Pending Completed Studies During Hospitalization Category Date Time Status XR chest 1V portable [id number] Routine Exams 04/30/24 17:42 Completed DYAN [CV. echo transesophageal [id number]] Routine Ultrasound 05/01/24 09:02 Completed Pending at discharge Category Date Time Status ARCHITECTURE PROFESSOR request for service Routine Exams 05/03/24 08:52 Taken Radiology Impressions Chest X-Ray 04/30/24 17:42 IMPRESSION: No acute cardiopulmonary process. Laboratory Results WBC 6.15 10^3/uL (3.29-11.43) 05/04/24 02:55 RBC 5.13 10^6/uL (3.85-5.65) 05/04/24 02:55 Hgb 15.30 g/dL (11.27-16.99) 05/04/24 02:55 Hct 46.2 % (37-53) 05/04/24 02:55 MCV 90.1 fl (82-101) 05/04/24 02:55 MCH 29.8 pg (27-33) 05/04/24 02:55 MCHC 33.1 g/dL (30-55) 05/04/24 02:55 RDW 12.6 % (12.1-15.1) 05/04/24 02:55 Plt Count 222 10^3/cmm (157-399) 05/04/24 02:55 MPV 9.0 fL (7.4-10.4) 05/04/24 02:55 Neut % (Auto) 63.2 % 05/04/24 02:55 Lymph % (Auto) 20.8 % 05/04/24 02:55 [place] % (Auto) 11.4 % 05/04/24 02:55 Eos % (Auto) 2.1 % 05/04/24 02:55 Baso % (Auto) 1.0 % 05/04/24 02:55 Neut # (Auto) 3.89 10^3/uL (1.8-7.7) 05/04/24 02:55 Lymph # (Auto) 1.3 10^3/uL (0.8-4.8) 05/04/24 02:55 [place] # (Auto) 0.7 10^3/uL (0.2-0.9) 05/04/24 02:55 Eos # (Auto) 0.1 10^3/uL (0.0-0.8) 05/04/24 02:55 Baso # (Auto) 0.1 10^3/uL (0.0-0.1) 05/04/24 02:55 Nucleated RBC % (auto) 0 % 05/04/24 02:55 Nucleated RBCs # 0.0 /100WBC 05/04/24 02:55 Sodium 139 mmol/L (136-145) 05/04/24 02:55 Potassium 4.4 mmol/L (3.5-5.1) 05/04/24 02:55 Chloride 103 mmol/L (98-107) 05/04/24 02:55 Carbon Dioxide 25 mmol/L (22-29) 05/04/24 02:55 Anion Gap 15.4 (5-19) 05/04/24 02:55 BUN 21 mg/dL (8-23) 05/04/24 02:55 Creatinine 1.1 mg/dL (0.7-1.2) 05/04/24 02:55 GFR Calculation Not Reportable 05/04/24 02:55 Glucose 121 mg/dL (65-115) H 05/04/24 02:55 Calculated Osmolality 292 mOsm/kg (285-295) 05/04/24 02:55 Calcium 8.9 mg/dL (8.5-10.5) 05/04/24 02:55 Total Bilirubin 0.4 mg/dL (0.15-1.2) 04/30/24 18:19 AST 52 U/L (0-40) H 04/30/24 18:19 ALT 79 U/L (0-41) H 04/30/24 18:19 Alkaline Phosphatase 84 U/L (40-130) 04/30/24 18:19 NT-Pro-B Natriuret Pep 1805 pg/mL (0-125) H 04/30/24 18:19 Total Protein 6.7 g/dL (6.6-8.7) 04/30/24 18:19 Albumin 4.5 g/dL (3.5-5.2) 04/30/24 18:19 Globulin 2.2 g/dL (1.3-4.6) 04/30/24 18:19 Vitals Last Vital Signs Temp 98.2 F 05/04/24 08:00 Pulse 62 05/04/24 09:00 Resp 18 05/04/24 09:00 BP 148/89 05/04/24 09:00 Pulse Ox 95 05/04/24 09:00 O2 Del Method Room Air 05/04/24 09:00 O2 Flow Rate 2 05/03/24 12:00 Discharge Plan Discharge Patient Disposition: Home Condition: Stable Prescriptions: New Entresto 24-26 mg Tablet 1 tab PO BID Qty: 120 3RF carvedilol 3.125 mg Tablet 3.125 mg PO BID Qty: 120 3RF Continued ascorbate calcium (vitamin C) 500 mg tablet 1 g PO DAILY vitamin E mixed 400 unit capsule 400 unit PO DAILY multivitamin [Daily Multi-Vitamin] Tablet 1 tab PO DAILY Discontinued ibuprofen 200 mg capsule 400 mg PO BID PRN (Reason: pain) metoprolol tartrate 25 mg tablet 50 mg PO BID No Action Pacerone 200 mg tablet 200 mg PO DAILY Qty: 90 3RF Eliquis 5 mg tablet 5 mg PO BID Qty: 10 0RF Discharge Orders: Discharge Order (Routine); Ordered 05/04/24 Ordered By: Clint Alanis Referrals: Rekha Bob FNP [Nurse Practitioner] - 05/14/24 1:30 pm Discharge Diet: Cardiac Discharge Activity: Increase activity as tolerated Patient Instructions: Atrial Fibrillation, Amiodarone (By mouth), Carvedilol (By mouth), Sacubitril/Valsartan (By mouth), Dilated Cardiomyopathy (DC), Heart Healthy Diet (DC), Opioid Safety, Post Angiogram Home Care Instructions Discharge Attestations Time Spent in Discharge Care*: less than 30 min Quality Metrics Clinical Quality Measures [ No reported AMI, CVA or VTE this stay] Coding Level of Care Code Acute Code for g Fwd Diagnoses Atrial fibrillation with RVR I48.91 Hypertension I10 LV dysfunction I51.9 Cardiomyopathy I42.9 Moderate mitral valve regurgitation I34.0
--- NOTE | 2024-05-04 12:22 | PC.SOCIAL ---
IMM Updated Updated pt on IMM. No questions voiced. Provided pt a copy. Initialed, dated, & timed a copy & placed in chart.
--- NOTE | 2024-05-04 14:05 | PC.NURSE ---
Discharge instructions: post angiogram care, cardimyopathy, a-fib, follow-up appts. life vest to be brought to his house, and new medications discussed. Pt verbalized understanding. Care noted provided on these topics, pt decline review at this time, he prefers to read at home. Pt discharged with family.
== END 2024-05-04 14:05 | disposition home or self-care (01) | DRG 287 ==
PROVIDERS: Internal Medicine Cardiovascular Disease; Admitting Provider Internal Medicine; PCP Family Medicine; Visit Provider Internal Medicine
PROC: 4A023N7 Measurement of Cardiac Sampling and Pressure, Left Heart, Percutaneous Approach (ICD-10-PCS; principal; 2024-05-03 10:00)
DX: I48.91 Unspecified atrial fibrillation (principal); I42.8 Other cardiomyopathies; I11.9 Hypertensive heart disease without heart failure; I34.0 Nonrheumatic mitral (valve) insufficiency; Z87.891 Personal history of nicotine dependence
CPT/HCPCS: 36415; 71045; 80048; 80053; 83880; 85025; 93005; 93312; 93320; 93325; 93458; 96372; 96374; 96375; 96376; 99152; 99153; 99215; A4222; C1769; C1887; C1894; G0378; G0379; J0283; J1644; J1650; J1940; J2250; J2405; J2704; J3010; J3490; Q9967

== ENCOUNTER → 2024-05-14 16:21 | Outpatient (BNVA) | payer MEDICARE, SELFPAY | PROVIDERS: PCP Family Medicine; Visit Provider Nurse Practitioner Family | DX: I48.0 Paroxysmal atrial fibrillation (principal); I45.9 Conduction disorder, unspecified; I51.7 Cardiomegaly; I21.9 Acute myocardial infarction, unspecified; I48.91 Unspecified atrial fibrillation | CPT/HCPCS: 93005; 99214 ==

== ENCOUNTER 2024-05-25 13:44 | Outpatient (CLI) | payer MEDICARE, SELFPAY ==
[2024-05-25 14:36] LABS: Anion Gap 12.5 (5-19); Blood Urea Nitrogen 21 mg/dL (8-23); Carbon Dioxide 26 mmol/L (22-29); Chloride 104 mmol/L (98-107); Glucose 100 mg/dL (65-115); NT Pro B Type Natriuretic Pept 708 pg/mL (0-125); Osmolality Calculated 289 mOsm/kg (285-295); Potassium 4.5 mmol/L (3.5-5.1); Sodium 138 mmol/L (136-145)
== END 2024-05-25 13:45 | disposition home or self-care (01) ==
LOC: RAD 13:46
PROVIDERS: PCP Family Medicine; Visit Provider Nurse Practitioner Family
DX: I42.8 Other cardiomyopathies (principal)
CPT/HCPCS: 36415; 80048; 83880

== ENCOUNTER → 2024-06-01 10:48 | Outpatient (BNVA) | payer MEDICARE, SELFPAY | PROVIDERS: PCP Family Medicine; Visit Provider Nurse Practitioner Family | DX: I51.9 Heart disease, unspecified (principal); I48.0 Paroxysmal atrial fibrillation; Z87.891 Personal history of nicotine dependence; Z79.01 Long term (current) use of anticoagulants | CPT/HCPCS: 36415; 80048; 83880; 99214 ==

== ENCOUNTER 2024-06-09 13:54 | Outpatient (CLI) | payer MEDICARE, SELFPAY ==
[2024-06-09 14:42] LABS: Anion Gap 11.6 (5-19); Blood Urea Nitrogen 22 mg/dL (8-23); Calcium 9.1 mg/dL (8.5-10.5); Carbon Dioxide 27 mmol/L (22-29); Chloride 101 mmol/L (98-107); Glucose 90 mg/dL (65-115); NT Pro B Type Natriuretic Pept 59 pg/mL (0-125); Osmolality Calculated 283 mOsm/kg (285-295); Potassium 4.6 mmol/L (3.5-5.1); Sodium 135 mmol/L (136-145)
== END 2024-06-09 13:55 | disposition home or self-care (01) ==
LOC: LAB 13:57
PROVIDERS: PCP Family Medicine; Visit Provider Nurse Practitioner Family
DX: I51.9 Heart disease, unspecified (principal)
CPT/HCPCS: 36415; 80048; 83880

== ENCOUNTER 2024-07-29 10:02 | Outpatient (CLI) | payer MEDICARE, SELFPAY ==
--- NOTE | 2024-07-29 | USCV_ITS ---
Jarvis Rivera Age: 74 Gender: M : 1950 Exam Date: 07/29/2024 10:29 Ordering Phys: Rekha Bob Technologist: [place] [facility] [place] icd assessment BP: 160 / 97 HR: Rhythm: Sinus Technical Quality: Adequate MEASUREMENTS (Male / Female) Normal Values 2D ECHO LVOT Diameter 2.0 cm LV Ejection Fraction MOD 4C 55.7 % LV Ejection Fraction MOD 2C 51.1 % LV Ejection Fraction 2C AL 52.7 % LA Diameter 4.1 cm RA Systolic Volume 4C AL 38.1 ml RA Systolic Volume 4C MOD 37.9 ml LA Sys Volume AL 36.8 cm cubed LA Sys Volume Index AL 18.3 cm cubed/m squared Aorta at Sinotubular Diameter 2.8 cm IVC Diameter 1.7 cm M-MODE LA Ao Ratio MM 1.7 AV Cusp Separation MM 1.8 cm FINDINGS Left Ventricle Right Ventricle Right Atrium Left Atrium Mitral Valve Aortic Valve Tricuspid Valve Pulmonic Valve Pericardium Aorta IVC CONCLUSIONS Limited echocardiogram performed to assess LV systolic function. LV systolic function is normal with EF 55 to 60%. No regional wall motion abnormalities are seen. Clint Alanis MD (Electronically Signed) Final Date: 30 July 2024 07:14 S
== END 2024-07-29 10:03 | disposition home or self-care (01) ==
LOC: RAD 10:02
PROVIDERS: PCP Family Medicine; Visit Provider Nurse Practitioner Family
DX: I51.9 Heart disease, unspecified (principal); I42.9 Cardiomyopathy, unspecified
CPT/HCPCS: 93308

== ENCOUNTER → 2024-08-07 08:53 | Outpatient (BNVA) | payer MEDICARE, SELFPAY | PROVIDERS: PCP Family Medicine; Visit Provider Internal Medicine Cardiovascular Disease | DX: I48.91 Unspecified atrial fibrillation (principal); I34.0 Nonrheumatic mitral (valve) insufficiency; I42.8 Other cardiomyopathies; J43.9 Emphysema, unspecified; Z87.891 Personal history of nicotine dependence | CPT/HCPCS: 99214 ==

== ENCOUNTER → 2025-03-18 08:48 | Outpatient (BNVA) | payer MEDICARE, SELFPAY | PROVIDERS: PCP Family Medicine; Visit Provider Family Medicine | DX: I48.91 Unspecified atrial fibrillation (principal); I48.0 Paroxysmal atrial fibrillation; I10 Essential (primary) hypertension | CPT/HCPCS: 80053; 80061; 85025 ==

== ENCOUNTER → 2025-04-22 16:00 | Outpatient (BNVA) | payer MEDICARE, SELFPAY | PROVIDERS: PCP Family Medicine; Visit Provider Internal Medicine Cardiovascular Disease | DX: I42.8 Other cardiomyopathies (principal); I10 Essential (primary) hypertension; I48.91 Unspecified atrial fibrillation; Z79.01 Long term (current) use of anticoagulants; N52.9 Male erectile dysfunction, unspecified; Z87.898 Personal history of other specified conditions; Z87.891 Personal history of nicotine dependence | CPT/HCPCS: 99214 ==

== ENCOUNTER → 2025-06-09 08:32 | Outpatient (BNVA) | payer MEDICARE, SELFPAY | PROVIDERS: PCP Family Medicine; Visit Provider Specialist | DX: G56.01 Carpal tunnel syndrome, right upper limb (principal); G56.02 Carpal tunnel syndrome, left upper limb; G89.29 Other chronic pain | CPT/HCPCS: 73110; 99204 ==

== ENCOUNTER → 2025-07-12 11:10 | Outpatient (BNVA) | payer MEDICARE, SELFPAY | PROVIDERS: PCP Family Medicine; Visit Provider Specialist | DX: Z01.818 Encounter for other preprocedural examination (principal); G56.03 Carpal tunnel syndrome, bilateral upper limbs | CPT/HCPCS: 36415; 80053; 81001; 85025; 99214 ==

== ENCOUNTER 2025-08-03 10:15 | Day surgery (SDC) | payer MEDICARE, SELFPAY ==
[2025-08-03] VITALS (12 sets, daily range): BP systolic 99–169; BP diastolic 64–96; PULSE 53–64; RESP 10–21; TEMP 36.5–36.9; O2SAT 94–99; BMI 27.3
[2025-08-03] MEDS: acetaminophen 1,000 MG/100 ML PIGGYBACK 400 MG IV (11:10)
--- NOTE | 2025-08-03 11:15 | ANES.PREANE2 ---
Pre-Anesthetic Assessment Height/Weight: Height 5 ft 7 in Weight 175 lb Temp Pulse Resp BP Pulse Ox O2 Del Method 98.0 F 56 L 16 169/96 97 Room Air 08/03/25 10:34 08/03/25 10:34 08/03/25 10:34 08/03/25 10:34 08/03/25 10:34 08/03/25 10:46 Preop Diagnosis: carpal tunnel syndrome Operation Date: 08/03/25 11:45 Proposed Procedures p RIGHT Carpal Tunnel Release(Right) - Sue Kuo MD Was Beta Shalonda taken within 24 hours: N/A Was Clonidine taken within 24 hours: N/A Last intake: Intake Last Liquid Date 08/02/25 Last Liquid Time 22:00 Last Solid Date 08/02/25 Last Solid Time 19:00 Social No alcohol and No tobacco Exam alert, oriented x 3 and clear to auscultation bilaterally Airway Submandibular: within normal limits Cervical ROM: within normal limits Mallampati: Class I Dentition: full Comments: Comments: bay Anesthetic Plan ASA status: 3 Anesthesia: General Other: Patient has had multiple surgeries but does state 1 time after shoulder procedure he got nauseous NPO since yesterday evening History of hypertension on sacubitril?valsartan as well as amiodarone Chronic A-fib on chronic Eliquis. Last taken 07/31/2025 Emphysema EKG showing A-fib Labs reviewed 07/12/2025 acceptable for procedure Echo 2023 showing EF of 55 to 60% with no RWMA Plan for general with LMA Medications/Allergies Home Medications ?Medication ?Instructions ?Recorded ?Confirmed ?Last Taken ?Type ascorbate calcium (vitamin C) 500 1 g PO DAILY 02/20/23 08/02/25 08/02/25 History mg tablet vitamin E mixed 400 unit capsule 400 unit PO DAILY 02/20/23 08/02/25 07/03/25 History multivitamin (Daily Multi-Vitamin 1 tab PO DAILY 05/20/23 08/02/25 08/02/25 History tablet) apixaban 5 mg tablet (Eliquis) 5 mg PO BID #180 tabs 03/17/25 08/02/25 07/31/25 Rx amiodarone 200 mg tablet (Pacerone) 200 mg PO DAILY #90 tabs 04/14/25 08/02/25 08/03/25 Rx sildenafil 50 mg tablet (Viagra) 50 mg PO DAILY PRN sexual activity 06/08/25 08/02/25 Unknown Rx #5 tabs sacubitril 97 mg-valsartan 103 mg 1 tab PO BID 08/02/25 08/02/25 08/02/25 History tablet Allergies Allergy/AdvReac Type Severity Reaction Status Date / Time Sulfa (Sulfonamide Allergy Severe mouth sores Verified 08/02/25 13:29 Antibiotics) Penicillins Allergy Intermediate ALGY-Hives Verified 08/02/25 13:29 tetracycline Allergy Intermediate ADR-Diarrhe Verified 08/02/25 13:29 a [facility] Anesthesia Medical History Atrial fibrillation Atrial fibrillation Atrial fibrillation with RVR Family History Father Diabetes Hypertension Sister Lung disease Cancer Mother Dementia Social History Smoking and tobacco/nicotine status: former use of tobacco/nicotine Alcohol intake: current Alcohol intake frequency: 0-2 Drinks per Day Data Anesthesia Cardiac Studies: Echocardiogram 04/15/24 Echocardiogram Limited Views 07/29/24 Transesophageal Echocardiogram 05/01/24 Cardiac Event Monitor 03/23/24
--- NOTE | 2025-08-03 11:51 | P.HPUD_ITS ---
Surgery/Procedure H&P Update DATE OF PROCEDURE: August 03, 2025 DATE H&P PERFORMED: 07/12/25 H&P UPDATE INFORMATION: I have reviewed H&P completed within last 30 days, I have examined patient prior to procedure, No changes to prior documentation, H&P is in [facility] EMR on date indicated and Risks and benefits of the procedure reviewed PREOP DIAGNOSIS: Right carpal tunnel syndrome PLANNED PROCEDURE: Operation Date: 08/03/25 11:45 Proposed Procedures p RIGHT Carpal Tunnel Release(Right) - Sue Kuo MD Related Problem List Diagnoses 1. Carpal tunnel syndrome on right:
[2025-08-03] MEDS: ceFAZolin 2,000 mg SDV 2000 MG IVP (12:10)
[2025-08-03] MEDS: BUPivacaine 0.5% INJ 30 mL INJECTION (12:47)
--- NOTE | 2025-08-03 13:21 | PM.OP ---
Operative Report Date of procedure: August 03, 2025 Pre-op diagnosis: Right carpal tunnel syndrome Post-op diagnosis: Right carpal tunnel syndrome Post-op findings: Significant compression across with discoloration of the median nerve Procedure done: Right carpal tunnel release Implants: None Specimens removed/disposition: None Pathology: None Surgeon: Sue Kuo MD Indirect Sales Exec: None Anesthesia: General (Per LMA, ASA 3) Estimated blood loss (mL): 1 Tourniquet time (min): 18 (At 250 mmHg) IV fluids (mL): 500 Urine output (mL): 0 (No Nicole) Complications: None Findings: Severe compression across the carpal canal with purpleish discoloration of the median nerve Condition: stable Disposition: PACU (Then return to same-day surgery for discharge to home) Brief History: This 75-year-old gentleman presents today for same-day carpal tunnel release on the right. He was seen in the office and had nerve conduction studies done and these demonstrated severe entrapment of both median nerves at the wrist. After discussion in the office, the patient wished to proceed with carpal tunnel release. Risks and complications of the surgery were discussed with the patient. Questions were answered and concerns were alleviated. Consents were signed. On the morning of surgery, the patient was given further opportunity for questions to be answered. Procedure: The patient was brought to the operating theater. The patient had a general anesthesia per LMA, ASA 3. The tourniquet was elevated to 250 mmHg for a total tourniquet time of 18 minutes. The patient was also given Ancef 2 g preoperatively. The arm was then prepped and draped with DuraPrep in the usual fashion with the arm draped free. A surgical pause was performed. At the time, the surgical pause, we confirmed the site and side of surgery. We also confirmed the patient's identity, appropriate and timely administration of preoperative antibiotics and preoperative surgical markings. An incision was then made along the thenar crease. The incision crossed the wrist joint in a curvilinear fashion. Dissection continued through skin and soft tissues using a scalpel. The palmaris longus was identified along with the transverse carpal ligament. Each of these was released carefully to avoid injury to the median nerve. We were able to dissect gently into the carpal canal which was noted to be quite tight with significant compression across the median nerve. The nerve was visualized and was an hourglass shape. Additionally, there was narrowing and purpleish discoloration of the nerve. The canal was subsequently palpated to assure there was no bony encroachment upon the canal. The nerve was slightly adherent to the transverse carpal ligament, and the ligament was elevated off of it. The canal was then palpated distally and proximally to assure that my small finger was passed easily without impingement. Finding this to be so, attention was directed to closure. The wound was irrigated with ropivacaine plain. It was then closed with 3-0 nylon in an interrupted mattress fashion. Sterile dressing was then placed consisting of Dermabond, OpSite, fluffed fluffs, sterile soft roll, and an Luis wrap. The tourniquet was released after 18 minutes. There were no complications. There were no specimens. The procedure was well tolerated. Plan is the patient will be discharged home. Related Problem List Diagnoses 1. Carpal tunnel syndrome on right:
--- NOTE | 2025-08-03 14:48 | ANE.PACU2 ---
Inpatient post-anesthesia follow up: Airway intact: Yes Vital signs: Temperature 98.4 F Pulse Rate 57 Respiratory Rate 16 Blood Pressure 102/66 Pulse Oximetry 97 Oxygen Delivery Me thod Room Air Oxygen Flow Rate 10 Fraction of Inspir ed Oxygen Hydration adequate: Yes Nausea and vomiting: No Pain level: 1 Mental status: Baseline
== END 2025-08-03 15:00 | disposition home or self-care (01) ==
PROVIDERS: PCP Family Medicine; Visit Provider Specialist
PROC: (CPT 64721; principal; 2025-08-03 11:45)
DX: G56.01 Carpal tunnel syndrome, right upper limb (principal); I10 Essential (primary) hypertension; I48.20 Chronic atrial fibrillation, unspecified; J43.9 Emphysema, unspecified; Z87.891 Personal history of nicotine dependence
CPT/HCPCS: 64721; J0131; J0690; J2405; J2704; J3010; J3490; J7030; J9999

== ENCOUNTER → 2025-08-16 10:05 | Outpatient (BNVA) | payer MEDICARE, SELFPAY | PROVIDERS: PCP Family Medicine; Visit Provider Specialist | DX: Z98.890 Other specified postprocedural states (principal) | CPT/HCPCS: 99024 ==